=== PATIENT | male | born 1975 | race Caucasian/White ===

== ENCOUNTER 2016-10-20 10:02 | Emergency (ER) | payer BC ==
[~2016-10-20] VITALS: Ht 175.3 cm; Wt 125.0 kg
[2016-10-20 10:04] VITALS: BP 136/87; PULSE 92; RESP 20; TEMP 98.5; O2SAT 96
[2016-10-20 10:07] VITALS: BP 136/87; PULSE 92; RESP 24; TEMP 98.5; O2SAT 96
[2016-10-20] MEDS ORDERED: IBUP800T23 PO (11:21)
--- NOTE | 2016-10-20 11:21 | PD ---
HPI Chief Complaint: Fall Time Seen by Provider: 11:17 Travel History International Travel<30 days: No Contact w/Intl Traveler<30days: No Traveled to known affect area: No History of Present Illness HPI 40-year-old male presents emergency Department with complaint of right ankle and foot pain after injuring it from stepping down from a bus and stepping into a hole, twisting his ankle and injuring the ankle and foot yesterday. Denies paresthesias, loss of sensation. Acute extremity. Has been ambulatory on the affected extremity. Reports swelling and bruising to the ankle. Reports pain just below the right great toe. Took ibuprofen yesterday for symptom management. Has no other medical complaints. Symptoms are mild in severity. No known allergies. No other modifying factors or associated signs and symptoms. PFSH Past Medical History Diabetes: Yes Social History Tobacco Use: No Allergies-Medications (Allergen,Severity, Reaction): Coded Allergies: No Known Allergies (Unverified , 10/20/16) Reported Meds & Prescriptions Reported Meds & Active Scripts Active Lortab (Hydrocodone-Acetaminophen) 5-325 Mg Tab 1-2 Tab PO Q6H PRN Ibuprofen 800 Mg Tab 800 Mg PO Q6HR PRN Review of Systems Except as stated in HPI: all other systems reviewed are Neg Physical Exam Narrative GENERAL: Well-nourished, well-developed male patient, in no acute distress SKIN: Warm and dry. HEAD: Atraumatic. Normocephalic. EYES: Pupils equal and round. No scleral icterus. No injection or drainage. ENT: Mucosa pink and moist. Airway patent. NECK: Trachea midline. CARDIOVASCULAR: Regular rate. RESPIRATORY: No accessory muscle use. GASTROINTESTINAL: Obese. MUSCULOSKELETAL: Right ankle with tenderness on palpation to the lateral malleolar zone; with edema; ecchymosis noted to the lateral malleolar/foot area ; without erythema; no obvious deformity. Right foot with tenderness on palpation to the first metatarsal region; without erythema, edema, ecchymosis. Right lower extremity is supple and nontender 2+ pedal pulse and sensory intact. No obvious deformities. No clubbing. No cyanosis. No edema. NEUROLOGICAL: Awake and alert. Oriented 3. No obvious cranial nerve deficits. Motor grossly within normal limits. Normal speech. PSYCHIATRIC: Appropriate mood and affect; insight and judgment normal. Data Data Last Documented VS Vital Signs Date Time Temp Pulse Resp B/P (MAP) Pulse Ox O2 Delivery O2 Flow Rate FiO2 10/20/16 13:33 10/20/16 10:07 98.5 92 24 96 Room Air Orders Orders Ibuprofen (Motrin) (10/20/16 11:30) Ankle, Complete (Aaj7cml) (10/20/16 11:16) Foot, Complete (Qra1uez) (10/20/16 11:16) Crutches (10/20/16 11:16) Post Op Boot (Shoe) (10/20/16 ) Brace Fracture Walker (10/20/16 ) MDM Medical Decision Making Medical Screen Exam Complete: Yes Emergency Medical Condition: Yes Medical Record Reviewed: Yes Differential Diagnosis Ankle sprain, ankle fracture, foot fracture, foot sprain Narrative Course 40-year-old male with right ankle and foot injury. Ibuprofen administered in the ER. Right ankle and foot x-ray ordered. 1235: Right foot x-ray concludes Acute tiny avulsion fracture involving the lateral margin of the distal calcaneus. Cam walking boot and crutches provider for support. Instructed patient to follow-up with orthopedic. Ibuprofen and Lortab prescribed for home. Instructed patient to follow up with primary care provider. Patient verbalizes understanding and agreement with treatment plan. Patient is medically cleared and stable for discharge. Discussed reasons to return to the emergency department. Patient agrees with treatment plan. The patients vital signs are stable and the patient is stable for outpatient follow- up and treatment. Patient discharged home, stable and in no acute distress. Diagnosis Primary Impression: Right calcaneal fracture Qualified Codes: S92.034A - Nondisplaced avulsion fracture of tuberosity of right calcaneus, initial encounter for closed fracture Referrals: Orthopedist Primary Care Physician Patient Instructions: General Instructions Additional Instructions: Tylenol or ibuprofen as directed and as needed for pain and inflammation Rest, ice, compress, and elevate extremity to decrease pain and inflammation Ankle Brace for support Crutches for support Avoid aggravating activity; increase activity as tolerated Follow-up with primary care provider Return to the emergency department immediately with worsening of symptoms Med/Other Pt SpecificInfo: Prescription(s) given Scripts Hydrocodone-Acetaminophen (Lortab) 5-325 Mg Tab 1-2 TAB PO Q6H Y for PAIN, #10 TAB 0 Refills Prov: Lightburn,Guilherme Babatunde MD 10/20/16 Ibuprofen (Ibuprofen) 800 Mg Tab 800 MG PO Q6HR Y for PAIN, #30 TAB 0 Refills Prov: Feli Gage 10/20/16 Disposition: 01 DISCHARGE HOME Condition: Stable Feli Gage Oct 20, 2016 11:21
[2016-10-20] MEDS ORDERED: IBUPROFEN 800 MG TAB PO ONE (11:30)
--- NOTE | 2016-10-20 12:23 | RADRPT ---
EXAM DATE/TIME: 10/20/2016 12:04 [facility] COMPARISON: No previous studies available for comparison. INDICATIONS : Right lateral side foot pain post fall. MEDICAL HISTORY : None. SURGICAL HISTORY : None. ENCOUNTER: Initial ACUITY: 1 day PAIN SCORE: 8/10 LOCATION: Right Foot FINDINGS: 3 views of the left foot reveal a tiny avulsion fracture from the lateral cortical margin of the dist al portion of the calcaneus. This approaches the calcaneo cuboidal joint. Mild overlying soft tissue swelling. Remaining bony structures are intact. In particular, the visualized portions of the distal fibula are unremarkable. Spurring of the calcaneus. CONCLUSION: Acute tiny avulsion fracture involving the lateral margin of the distal calcaneus. Ricci Hansen Jr., MD on October 20, 2016 at 12:20 Board Certified Radiologist. This report was verified electronically.
--- NOTE | 2016-10-20 12:24 | RADRPT ---
EXAM DATE/TIME: 10/20/2016 12:06 [facility] COMPARISON: No previous studies available for comparison. INDICATIONS : Right lateral side ankle pain post fall. MEDICAL HISTORY : None. SURGICAL HISTORY : None. ENCOUNTER: Initial ACUITY: 1 day PAIN SCORE: 8/10 LOCATION: Right Ankle FINDINGS: Three view exam was performed of the right ankle. The bony structures are in normal alignment. No e vidence of fracture, dislocation, or soft tissue swelling. The ankle mortise is intact. No radiopaq ue foreign bodies are seen. Bony mineralization is normal. CONCLUSION: Unremarkable examination of the right ankle. See the foot reported separately. Ricci Hansen Jr., MD on October 20, 2016 at 12:22 Board Certified Radiologist. This report was verified electronically.
[2016-10-20] MEDS ORDERED: HYDR-3533 PO (12:40)
== END 2016-10-20 13:33 | disposition home or self-care (01) ==
LOC: EDBD 10:02 → NEPK 10:02
DX: S92.034A Nondisplaced avulsion fracture of tuberosity of right calcaneus, initial encounter for closed fracture (principal); W17.2XXA Fall into hole, initial encounter; Y93.89 Activity, other specified
CPT/HCPCS: 73610; 73630; 99283; E0113; L2114